=== PATIENT | female | born 1990 | race Caucasian/White ===

== ENCOUNTER 2025-03-24 18:14 | Emergency (ER) | payer OTHER ==
[~2025-03-24] VITALS: Ht 170.2 cm; Wt 74.0 kg
[2025-03-24 18:24] VITALS: BP 120/87; PULSE 100; RESP 18; TEMP 99.6; O2SAT 97
[2025-03-24] MEDS ORDERED: AMOX-117 PO (18:32)
--- NOTE | 2025-03-24 18:32 | Physician Documentation ---
History of Present Illness ~ Chief Complaint: Cold, cough & congestion Stated Complaint: SINUS INFECTION Time Seen by MD: 18:29 Source: patient Mode of Arrival: POV Exam Limitations: no limitations HPI 34-year-old female with sinus congestion ear pain started on an ear drop. Patient is for [facility] is trying to get home but [facility] she can not get a prescription for sinus infection here. Review of Systems All Other Systems at this time: Reviewed and Negative ENT: Reports: see HPI Physical Exam General Appearance: alert, WD/WN, no apparent distress Eye Lid: normal inspection Conjunctiva: normal inspection Cornea: normal inspection Pupils/EOM/Fundus: PERRLA Ear Right ear with erythema surrounding the tympanic membrane external canal unremarkable Nose Congestion sinus pressure Mouth/Throat: normal mouth inspection Face: normal inspection Head: normal inspection Neck: non-tender Medical Decision Making Findings Antibiotics prescribed to pharmacy that is open for patient to start antibiotics prior to returning home Departure Time of Disposition: 18:31 Disposition: 01 HOME / SELF CARE / HOMELESS Impression: Primary Impression: Sinusitis Condition: Stable Discharge Instructions: Upper Respiratory Infection, Adult Additional Instructions: Antibiotics and follow up with primary care when back home Referrals: NO PRIMARY CARE PROVIDER (PCP) Prescriptions Amox Tr/Potassium Clavulanate (Augmentin 875-125 Tablet) 1 Each Tablet 1 TAB PO Q12H for 10 Days, #20 TAB Prov: LIBBY GARCIA NP 03/24/25 Education Educated: Patient Educated regarding: diagnosis, treatment, need for follow up Signature Scribe Signature: No scribe Attestation: The note accurately reflects work and decisions made by me.Libby ESTRADA 03/24/25 18:32 LIBBY GARCIA NP Mar 24, 2025 18:32
== END 2025-03-24 19:18 | disposition home or self-care (01) ==
LOC: ER 18:15
DX: J32.9 Chronic sinusitis, unspecified (principal)
CPT/HCPCS: 99283